=== PATIENT | male | born 1955 | race Caucasian/White ===

== ENCOUNTER 2024-08-18 07:18 | Outpatient (OUT) | payer BC, SELFPAY ==
[2024-08-18 07:46] LABS: Basophils Absolute Auto 0.1 10^3/uL (0.0-0.1); Basophils Percent Auto 0.4 % (0.2-2.0); Eosinophils Absolute Auto 1.1 10^3/uL (0.0-0.7); Eosinophils Percent Auto 7.1 % (0.9-7.0); Hematocrit 32.7 % (42.0-54.0); Hemoglobin 10.2 g/dL (14.0-18.0); Immature Granulocytes Abs Auto 0.09 10^3/uL (0.00-0.03); Immature Granulocytes Pct Auto 0.6 % (0.0-0.5); Lymphocytes Absolute Auto 0.9 10^3/uL (1.2-3.8); Mean Corpuscular HGB Conc 31.2 g/dL (29.9-35.2); Mean Corpuscular Hemoglobin 30.5 pg (25.9-34.0); Mean Corpuscular Volume 97.9 fL (80.0-94.0); Mean Platelet Volume 8.8 fL (9.5-13.5); Monocytes Percent Auto 6.7 % (1.7-12.0); Neutrophils Absolute Auto 11.8 10^3/uL (1.4-6.5); Neutrophils Percent Auto 79.2 % (43.0-75.0); Platelet Count 556 10^3/uL (150-450); Red Blood Count 3.34 10^6/uL (4.70-6.10); Red Cell Distribution Width 14.6 % (11.0-15.0); White Blood Count 14.8 10^3/uL (4.0-11.0)
[2024-08-18 08:16] LABS: Alanine Aminotransferase 22 U/L (16-63); Albumin Globulin Ratio 0.4; Alkaline Phosphatase 82 U/L (46-116); Anion Gap 15.9; Aspartate Amino Transferase 20 U/L (15-37); BUN Creatinine Ratio 13.4; Bilirubin Total 0.4 mg/dL (0.2-1.0); Calcium 8.5 mg/dL (8.5-10.1); Carbon Dioxide 26.4 mmol/L (21.0-32.0); Chloride 99 mmol/L (98-107); Chol HDL Ratio 4.2; Cholesterol 126 mg/dL (<=200); Estimated GFR (African America >60 (>=60 mL/min/1.73m^2); Estimated GFR (Non-African Ame >60 (>=60 mL/min/1.73m^2); Free T3 0.73 pg/mL (2.18-3.98); Glucose 81 mg/dL (74-106); HDL Cholesterol 30 mg/dL (40-60); Potassium 4.3 mmol/L (3.5-5.1); Sodium 137 mmol/L (136-145); Thyroid Stimulating Hormone 5.368 uIU/mL (0.358-3.740); Triglycerides 98 mg/dL (<=150); Uric Acid 3.2 mg/dL (3.5-7.2); VLDL CHOLESTEROL 19.6 mg/dL
[2024-08-18 08:43] LABS: Prostate Specific Antigen Scrn 1.61 ng/mL (<=4.00)
[2024-08-18 08:46] LABS: Estimated Average Glucose 105 mg/dL; Glycohemoglobin A1C 5.3 % (4.5-6.2)
[2024-08-19 04:07] LABS: Insulin 1.3 uIU/mL (2.6-24.9)
== END 2024-08-18 07:19 | disposition home or self-care (01) ==
LOC: LAB 07:23
PROVIDERS: PCP Nurse Practitioner Family; Visit Provider Nurse Practitioner Family
DX: Z00.00 Encounter for general adult medical examination without abnormal findings (principal); R53.83 Other fatigue; D72.828 Other elevated white blood cell count; D64.9 Anemia, unspecified; D75.838 Other thrombocytosis
CPT/HCPCS: 36415; 80053; 80061; 83036; 83525; 84436; 84443; 84481; 84550; 85025; G0103

== ENCOUNTER 2024-08-30 13:33 | Outpatient (OUT) | payer BC, SELFPAY ==
--- NOTE | 2024-08-30 | CT_ITS ---
[address] [address] Patient Name: EBONY WADSWORTH MRN: [id number] date: 1955 Sex: M Assigned Patient Location: CT Current Patient Location: Accession/Order Number: [id number] Exam Date: 08/30/2024 14:10 Report Date: 09/01/2024 05:17 At the request of: PATRIA CUELLAR Procedure: CT lung screening low-dose EXAMINATION: CT lung screening low-dose HISTORY: Smoker COMPARISON: No relevant comparison available. TECHNIQUE: Axial, Coronal, and Sagittal images were created without the administration of IV contrast material. Dose reduction techniques were achieved by using automated exposure control and/or adjustment of mA and/or kV according to patient size and/or use of iterative reconstruction technique. FINDINGS: LUNGS: Large right upper lobe mass approximately 16 x 13 x 10 cm. Marked emphysematous changes bilaterally. PLEURA: Right pleural effusion 2.1 cm in thickness. VASCULATURE: No abnormality. ATTILA: Right hilar lymphadenopathy versus involvement with the right upper lobe mass. MEDIASTINUM: Suspect enlarged lymph nodes. CARDIAC: Trace amount of pericardial fluid. Coronary Artery calcifications: Coronary calcifications are mild. AORTA: No aneurysm or dissection. CHEST WALL: Right supraclavicular mass approximately 5.1 cm. BONES: No bone lesion or fracture. LIMITED ABDOMEN: No suspicious findings. Limited images of the upper abdomen. OTHER: Negative. CT/CT lung screening low-dose IMPRESSION: 1. Lung-RADS Category 4B- Suspicious. Findings for which additional diagnostic testing and/ or tissue sampling is recommended. Chest CT with or without contrast, PET/CT and/ or tissue sampling depending on the * probability of malignancy and comorbidities. PET/CT may be used when there is a >= 8 mm solid component. 2. Large 16 cm right upper lobe mass most compatible with neoplasm. Tissue sampling is recommended. 3. Right supraclavicular mass; likely metastatic disease to lymph nodes. 4. Suspect mediastinal lymphadenopathy. CT chest with IV contrast could be performed for clarification. 5. Moderate size right pleural effusion. Electronically authenticated by: EMMA JACKSON Date: 09/01/2024 05:17
--- NOTE | 2024-08-30 13:39 | XR_ITS ---
The [address] [address] Patient Name: EBONY WADSWORTH MRN: [id number] date: 1955 Sex: M Assigned Patient Location: CT Current Patient Location: LAB Accession/Order Number: [id number] Exam Date: 08/30/2024 13:45 Report Date: 08/30/2024 15:04 At the request of: PATRIA CUELLAR Procedure: XR lumbar spine 2-3V EXAMINATION: XR thoracic spine 2V, XR lumbar spine 2-3V HISTORY: Back Pain COMPARISON: No relevant comparison available. FINDINGS: BONES: Normal alignment of the thoracic spine on the lateral projection. No lateral lumbar projection is presented. Mild to moderate spondylosis and facet osteoarthropathy DISC SPACES: Normal. No significant disc height narrowing, subluxation, or endplate abnormality. PARASPINOUS: Negative. No paraspinous abnormality is seen. OTHER: Approximately 50% opacification of the right upper to mid lung zone, indeterminate. Vascular calcifications. XR/XR lumbar spine 2-3V IMPRESSION: Mild to moderate degenerative change 50% opacification of the right upper to midlung zone Electronically authenticated by: KARI MOLINA Date: 08/30/2024 15:04
--- NOTE | 2024-08-30 13:59 | XR_ITS ---
The [address] [address] Patient Name: EBONY WADSWORTH MRN: [id number] date: 1955 Sex: M Assigned Patient Location: CT Current Patient Location: LAB Accession/Order Number: [id number] Exam Date: 08/30/2024 13:45 Report Date: 08/30/2024 15:04 At the request of: PATRIA CUELLAR Procedure: XR thoracic spine 2V EXAMINATION: XR thoracic spine 2V, XR lumbar spine 2-3V HISTORY: Back Pain COMPARISON: No relevant comparison available. FINDINGS: BONES: Normal alignment of the thoracic spine on the lateral projection. No lateral lumbar projection is presented. Mild to moderate spondylosis and facet osteoarthropathy DISC SPACES: Normal. No significant disc height narrowing, subluxation, or endplate abnormality. PARASPINOUS: Negative. No paraspinous abnormality is seen. OTHER: Approximately 50% opacification of the right upper to mid lung zone, indeterminate. Vascular calcifications. XR/XR thoracic spine 2V IMPRESSION: Mild to moderate degenerative change 50% opacification of the right upper to midlung zone Electronically authenticated by: KARI MOLINA Date: 08/30/2024 15:04
== END 2024-08-30 13:34 | disposition home or self-care (01) ==
LOC: CT 13:33
PROVIDERS: PCP Nurse Practitioner Family; Visit Provider Nurse Practitioner Family
DX: R91.8 Other nonspecific abnormal finding of lung field (principal); M54.9 Dorsalgia, unspecified; F17.200 Nicotine dependence, unspecified, uncomplicated; J90 Pleural effusion, not elsewhere classified
CPT/HCPCS: 71271; 72070; 72100

== ENCOUNTER 2024-08-31 07:01 | Outpatient (OUT) | payer BC, SELFPAY ==
[2024-08-31 07:58] LABS: Basophils Absolute Auto 0.1 10^3/uL (0.0-0.1); Basophils Percent Auto 0.4 % (0.2-2.0); Eosinophils Absolute Auto 1.4 10^3/uL (0.0-0.7); Eosinophils Percent Auto 6.3 % (0.9-7.0); Hematocrit 29.6 % (42.0-54.0); Immature Granulocytes Abs Auto 0.15 10^3/uL (0.00-0.03); Immature Granulocytes Pct Auto 0.7 % (0.0-0.5); Lymphocytes Percent Auto 4.7 % (20.5-60.0); Mean Corpuscular HGB Conc 30.4 g/dL (29.9-35.2); Mean Corpuscular Hemoglobin 29.8 pg (25.9-34.0); Mean Platelet Volume 9.5 fL (9.5-13.5); Monocytes Absolute Auto 0.9 10^3/uL (0.3-0.8); Neutrophils Absolute Auto 18.4 10^3/uL (1.4-6.5); Neutrophils Percent Auto 83.9 % (43.0-75.0); Platelet Count 639 10^3/uL (150-450); Red Blood Count 3.02 10^6/uL (4.70-6.10); Red Cell Distribution Width 14.7 % (11.0-15.0); White Blood Count 21.9 10^3/uL (4.0-11.0)
[2024-08-31 08:29] LABS: Thyroid Stimulating Hormone 3.402 uIU/mL (0.358-3.740)
== END 2024-08-31 07:02 | disposition home or self-care (01) ==
LOC: LAB 07:01
PROVIDERS: PCP Nurse Practitioner Family; Visit Provider Nurse Practitioner Family
DX: M54.9 Dorsalgia, unspecified (principal); R53.83 Other fatigue; Z12.12 Encounter for screening for malignant neoplasm of rectum; D64.9 Anemia, unspecified; E03.9 Hypothyroidism, unspecified; D72.829 Elevated white blood cell count, unspecified
CPT/HCPCS: 36415; 81001; 83540; 84436; 84443; 84481; 85025; 87086

== ENCOUNTER 2024-09-01 02:52 | Emergency (ER) | payer BC, SELFPAY ==
[2024-09-01 03:07] VITALS: BP 115/78; PULSE 53; TEMP 36.9; O2SAT 94; BMI 18.2
--- NOTE | 2024-09-01 03:48 | ECG_ITS ---
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
--- NOTE | 2024-09-01 03:48 | CT_ITS ---
[address] [address] Patient Name: EBONY WADSWORTH MRN: [id number] date: 1955 Sex: M Assigned Patient Location: Current Patient Location: CT Accession/Order Number: [id number] Exam Date: 09/01/2024 04:40 Report Date: 09/01/2024 05:33 At the request of: CHRISTOPHER HARRELL Procedure: CT soft tissue neck w con EXAMINATION: CT soft tissue neck w con, CT chest w con HISTORY: right sided neck mass COMPARISON: No relevant comparison available. TECHNIQUE: Axial, Coronal, and Sagittal CT images created with IV contrast. Dose reduction techniques were achieved by using automated exposure control and/or adjustment of mA and/or kV according to patient size and/or use of iterative reconstruction technique. FINDINGS: NASOPHARYNX: No asymmetry of the fossae of Rosenmuller and torus tubarius. ORAL CAVITY: No visible mass. OROPHARYNX: No asymmetry of the facial and lingual tonsils. HYPOPHARYNX: No mass or other visible lesion. LARYNX: No mass or asymmetry of the vocal cords. SINUSES: No significant fluid or mucosal thickening. NECK GLANDS: No visible abnormality of the parotid, submandibular, and thyroid glands. LYMPH NODES: 5.8 cm right supraclavicular mass/lymph node. 3.5 cm left supraclavicular mass/lymph node. VASCULATURE: No suspicious abnormality. BONES: No appreciable bone lesion. Marked degenerative changes of cervical spine. OTHER: 2.4 cm area of enhancement within right temporal lobe with trace amount of suspected edema; suspicious for metastatic disease. LUNGS: Right upper lobe heterogeneously enhancing 14.7 x 11.0 x 13.2 cm mass. Moderate to marked emphysematous changes bilaterally. PLEURA: Right pleural effusion 2.6 cm in thickness. Encapsulated pleural fluid overlying the right lung apex/mass. VASCULATURE: Mass versus thrombus occluding the right upper lobe pulmonary vein. No pulmonary arterial thrombus or emboli. ATTILA: Right upper lobe mass completely encapsulates right hilum with extension into the mediastinum. MEDIASTINUM: 2 abnormally enlarged and heterogeneously enhancing lymph nodes/masses within upper mediastinum, 3.8 cm and 3.7 cm respectively. Multiple abnormal subcarinal and precarinal lymph nodes. CARDIAC: Trace amount pericardial fluid. AORTA: No aneurysm or dissection. CHEST WALL: See above under neck BONES: No bone lesion or fracture. LIMITED ABDOMEN: Bilateral adrenal masses, 5.0 cm in diameter on right, 10.1 cm on left. Limited images of the upper abdomen. OTHER: Negative. CT/CT soft tissue neck w con IMPRESSION: 1. Large right upper lobe mass most compatible with neoplasm. 2. Metastatic lesions versus abnormal lymph nodes within the supraclavicular regions bilaterally, right hilum, and mediastinum. 3. Area of abnormal enhancement within the right temporal lobe of the brain minimally included on today's study but concerning for metastatic disease. 4. Moderate size right pleural effusion along with encapsulated pleural fluid overlying the right lung apex/mass. 5. Large bilateral adrenal masses of uncertain etiology (10.1 cm on left). Electronically authenticated by: EMMA JACKSON Date: 09/01/2024 05:33
[2024-09-01 04:06] LABS: Basophils Absolute Auto 0.1 10^3/uL (0.0-0.1); Basophils Percent Auto 0.4 % (0.2-2.0); Eosinophils Absolute Auto 1.8 10^3/uL (0.0-0.7); Eosinophils Percent Auto 7.5 % (0.9-7.0); Hematocrit 26.3 % (42.0-54.0); Hemoglobin 8.1 g/dL (14.0-18.0); Immature Granulocytes Pct Auto 0.8 % (0.0-0.5); Lymphocytes Percent Auto 4.1 % (20.5-60.0); Mean Corpuscular HGB Conc 30.8 g/dL (29.9-35.2); Mean Corpuscular Hemoglobin 30.1 pg (25.9-34.0); Mean Corpuscular Volume 97.8 fL (80.0-94.0); Mean Platelet Volume 9.5 fL (9.5-13.5); Monocytes Absolute Auto 1.1 10^3/uL (0.3-0.8); Monocytes Percent Auto 4.6 % (1.7-12.0); Neutrophils Absolute Auto 19.5 10^3/uL (1.4-6.5); Neutrophils Percent Auto 82.6 % (43.0-75.0); Platelet Count 555 10^3/uL (150-450); Red Blood Count 2.69 10^6/uL (4.70-6.10); White Blood Count 23.6 10^3/uL (4.0-11.0)
[2024-09-01 04:23] LABS: Alanine Aminotransferase 13 U/L (16-63); Albumin Globulin Ratio 0.4; Albumin Level 1.8 g/dL (3.4-5.0); Alkaline Phosphatase 78 U/L (46-116); Anion Gap 12.7; Aspartate Amino Transferase 20 U/L (15-37); BUN Creatinine Ratio 21.7; Bilirubin Total 0.4 mg/dL (0.2-1.0); Calcium 8.4 mg/dL (8.5-10.1); Carbon Dioxide 25.3 mmol/L (21.0-32.0); Chloride 100 mmol/L (98-107); Estimated GFR (African America >60 (>=60 mL/min/1.73m^2); Estimated GFR (Non-African Ame >60 (>=60 mL/min/1.73m^2); Globulin 4.7 g/dL; Glucose 92 mg/dL (74-106); Sodium 134 mmol/L (136-145); Total Protein 6.5 g/dL (6.4-8.2)
--- NOTE | 2024-09-01 04:25 | CT_ITS ---
[address] [address] Patient Name: EBONY WADSWORTH MRN: [id number] date: 1955 Sex: M Assigned Patient Location: ED.MAIN Current Patient Location: CT Accession/Order Number: [id number] Exam Date: 09/01/2024 04:40 Report Date: 09/01/2024 05:33 At the request of: CHRISTOPHER HARRELL Procedure: CT chest w con EXAMINATION: CT soft tissue neck w con, CT chest w con HISTORY: right sided neck mass COMPARISON: No relevant comparison available. TECHNIQUE: Axial, Coronal, and Sagittal CT images created with IV contrast. Dose reduction techniques were achieved by using automated exposure control and/or adjustment of mA and/or kV according to patient size and/or use of iterative reconstruction technique. FINDINGS: NASOPHARYNX: No asymmetry of the fossae of Rosenmuller and torus tubarius. ORAL CAVITY: No visible mass. OROPHARYNX: No asymmetry of the facial and lingual tonsils. HYPOPHARYNX: No mass or other visible lesion. LARYNX: No mass or asymmetry of the vocal cords. SINUSES: No significant fluid or mucosal thickening. NECK GLANDS: No visible abnormality of the parotid, submandibular, and thyroid glands. LYMPH NODES: 5.8 cm right supraclavicular mass/lymph node. 3.5 cm left supraclavicular mass/lymph node. VASCULATURE: No suspicious abnormality. BONES: No appreciable bone lesion. Marked degenerative changes of cervical spine. OTHER: 2.4 cm area of enhancement within right temporal lobe with trace amount of suspected edema; suspicious for metastatic disease. LUNGS: Right upper lobe heterogeneously enhancing 14.7 x 11.0 x 13.2 cm mass. Moderate to marked emphysematous changes bilaterally. PLEURA: Right pleural effusion 2.6 cm in thickness. Encapsulated pleural fluid overlying the right lung apex/mass. VASCULATURE: Mass versus thrombus occluding the right upper lobe pulmonary vein. No pulmonary arterial thrombus or emboli. ATTILA: Right upper lobe mass completely encapsulates right hilum with extension into the mediastinum. MEDIASTINUM: 2 abnormally enlarged and heterogeneously enhancing lymph nodes/masses within upper mediastinum, 3.8 cm and 3.7 cm respectively. Multiple abnormal subcarinal and precarinal lymph nodes. CARDIAC: Trace amount pericardial fluid. AORTA: No aneurysm or dissection. CHEST WALL: See above under neck BONES: No bone lesion or fracture. LIMITED ABDOMEN: Bilateral adrenal masses, 5.0 cm in diameter on right, 10.1 cm on left. Limited images of the upper abdomen. OTHER: Negative. CT/CT chest w con IMPRESSION: 1. Large right upper lobe mass most compatible with neoplasm. 2. Metastatic lesions versus abnormal lymph nodes within the supraclavicular regions bilaterally, right hilum, and mediastinum. 3. Area of abnormal enhancement within the right temporal lobe of the brain minimally included on today's study but concerning for metastatic disease. 4. Moderate size right pleural effusion along with encapsulated pleural fluid overlying the right lung apex/mass. 5. Large bilateral adrenal masses of uncertain etiology (10.1 cm on left). Electronically authenticated by: EMMA JACKSON Date: 09/01/2024 05:33
--- NOTE | 2024-09-01 04:27 | ED.GENADUL1 ---
HPI HPI - General Adult General Chief complaint: Weakness Stated complaint: GENERAL WEAKNESS Time Seen by Provider: 09/01/24 03:21 Source: patient and family Mode of arrival: Wheelchair History of Present Illness HPI narrative: 69-year-old male to the emergency department with multiple medical complaints. Patient is accompanied by his who helps provide history. The patient reports that he just has not been feeling well for weeks. He has been worked up by his outpatient nurse practitioner. He was recently at the hospital for some labs, was found to have a leukocytosis, was on some antibiotics. He had follow-up labs performed which showed that his white count did not improve. was told that if he was feeling worse they should come to the emergency department. He denies any fever, sweats, chills. He reports nausea without vomiting. He reports generalized weakness. He reports some mild shortness of breath. reports that she noticed a week ago that he has some swelling on the right side of his neck. She is concerned that this has not been addressed. They are here tonight because they want to know why he is anemic, has an elevated white blood cell count, has generalized weakness. He was given follow-up with hematology was which has not yet occurred. Related Data Home Medications ?Medication ?Instructions ?Recorded ?Confirmed albuterol sulfate 90 mcg/actuation inhalation 09/01/24 aerosol inhaler meloxicam 7.5 mg tablet mg 09/01/24 ondansetron HCl 4 mg tablet mg 09/01/24 Allergies Allergy/AdvReac Type Severity Reaction Status Date / Time No Known Drug Allergies Allergy Verified 09/01/24 03:19 Opioid HPI Opioid Management Most Recent Opioid Data: No Data to Display Review of Systems ROS Status of ROS 10 or more systems reviewed and unremarkable except as noted in history and below [facility] Social History Little interest or pleasure in doing things: not at all Feeling down, depressed, or hopeless: not at all Exam Narrative Exam Narrative: VITALS: I have reviewed the triage vital signs. GENERAL: Chronically ill-appearing adult male NEURO: Alert and oriented. Moves all extremities. Face is symmetric and expressive. EYES: PERRL. No scleral icterus or conjunctival injection. No discharge. HENT: Normocephalic, atraumatic. Hearing is grossly intact. Nares grossly patent and without discharge. Mucous membranes moist. NECK: No JVD. Patient moves neck without restriction. Nonmobile/nontender right-sided neck mass. CARDIO: Rhythm regular. Normal rate. No murmur, rub, or gallop. Pulses equal bilaterally in the upper and lower extremity. No lower extremity edema. PULM: Decreased lung sounds on the right. No wheezes, rales, or rhonchi. No conversational dyspnea. No splinting, stridor, or accessory muscle use. GI/: Abdomen is soft and non-tender. Normoactive bowel sounds. EXTREMITIES: Symmetric muscle bulk. No joint swelling. No clubbing, cyanosis, or deformity. SKIN: Warm and dry. Normal turgor. No rash or lesions appreciated. PSYCH: Mood, affect, and interaction is appropriate to the setting. Constitutional Vital Signs, click to edit/add: Last Vital Signs Temp 97.6 F 09/01/24 06:25 Pulse 78 09/01/24 06:25 Resp 18 09/01/24 06:25 BP 106/78 09/01/24 06:25 Pulse Ox 91 L 09/01/24 06:25 O2 Del Method Room Air 09/01/24 06:25 Course Vital Signs Vital signs: Vital Signs Temperature 98.5 F 09/01/24 03:07 Pulse Rate 53 L 09/01/24 03:07 Respiratory Rate 18 09/01/24 03:07 Blood Pressure 115/78 09/01/24 03:07 Pulse Oximetry 94 L 09/01/24 03:07 Oxygen Delivery Method Room Air 09/01/24 03:07 Temperature 97.6 F 09/01/24 06:25 Pulse Rate 78 09/01/24 06:25 Respiratory Rate 18 09/01/24 06:25 Blood Pressure 106/78 09/01/24 06:25 Pulse Oximetry 91 L 09/01/24 06:25 Oxygen Delivery Method Room Air 09/01/24 06:25 Medical Decision Making MDM Narrative Medical decision making narrative: 69-year-old male with chronic generalized weakness, shortness of breath, right-sided neck mass to the emergency department for the above. Vital stable, the patient is afebrile. He has no focal motor deficits. He is alert and oriented. He does have a nonmobile/nontender mass to the right sided neck. Decreased lung sounds on the right. I did review the labs and imaging ordered by his nurse practitioner. He does have a leukocytosis and chronic appearing anemia. The low-dose CT scan has not yet been read but there is a opacification of the right lung brewster. Given the abnormal low-dose noncontrasted CT, neck mass, generalized symptoms decision is made to proceed with CT imaging of the neck as well as chest with IV contrast. Basic labs. Concern for malignancy. Case discussed via telephone with Dr. Wright the on-call oncologist. For purposes of staging, biopsy, initiation of treatment he believes the patient is best served by transfer to [facility]. Patient was updated on findings and plan of care. He agrees with plan for transfer to [facility]. Case was discussed with Dr. Cui the on-call hospitalist at [facility]. He accepts the patient to his service. Medical Records Medical records reviewed: Yes I reviewed the patient's medical records Lab Data Lab results reviewed: Yes I reviewed the patient's lab results Labs: Lab Results 09/01/24 Range/Units 03:55 WBC 23.6 H (4.0-11.0) 10^3/uL RBC 2.69 L (4.70-6.10) 10^6/uL Hgb 8.1 L (14.0-18.0) g/dL Hct 26.3 L (42.0-54.0) % MCV 97.8 H (80.0-94.0) fL MCH 30.1 (25.9-34.0) pg MCHC 30.8 (29.9-35.2) g/dL RDW 15.0 (11.0-15.0) % Plt Count 555 H (150-450) 10^3/uL MPV 9.5 (9.5-13.5) fL Neut % (Auto) 82.6 H (43.0-75.0) % Lymph % (Auto) 4.1 L (20.5-60.0) % [place] % (Auto) 4.6 (1.7-12.0) % Eos % (Auto) 7.5 H (0.9-7.0) % Baso % (Auto) 0.4 (0.2-2.0) % Neut # (Auto) 19.5 H (1.4-6.5) 10^3/uL Lymph # (Auto) 1.0 L (1.2-3.8) 10^3/uL [place] # (Auto) 1.1 H (0.3-0.8) 10^3/uL Eos # (Auto) 1.8 H (0.0-0.7) 10^3/uL Baso # (Auto) 0.1 (0.0-0.1) 10^3/uL Abs Immat Gran (auto) 0.20 H (0.00-0.03) 10^3/uL Imm/Tot Granulo (auto) 0.8 H (0.0-0.5) % Sodium 134 L (136-145) mmol/L Potassium 4.0 (3.5-5.1) mmol/L Chloride 100 (98-107) mmol/L Carbon Dioxide 25.3 (21.0-32.0) mmol/L Anion Gap 12.7 BUN 23.0 H (7.0-18.0) mg/dL Creatinine 1.06 (0.70-1.30) mg/dL Est GFR ( Amer) >60 (>=60 mL/min/1.73m^2) Est GFR (Non-Af Amer) >60 (>=60 mL/min/1.73m^2) BUN/Creatinine Ratio 21.7 Glucose 92 (74-106) mg/dL Calcium 8.4 L (8.5-10.1) mg/dL Total Bilirubin 0.4 (0.2-1.0) mg/dL AST 20 (15-37) U/L ALT 13 L (16-63) U/L Alkaline Phosphatase 78 (46-116) U/L Troponin I High Sens 5.0 (4.0-76.1) pg/mL Total Protein 6.5 (6.4-8.2) g/dL Albumin 1.8 L (3.4-5.0) g/dL Globulin 4.7 g/dL Albumin/Globulin Ratio 0.[address] scan - chest: Radiologist's impression: ITS Impressions Soft Tissue Neck CT 09/01/24 03:48 IMPRESSION: 1. Large right upper lobe mass most compatible with neoplasm. 2. Metastatic lesions versus abnormal lymph nodes within the supraclavicular regions bilaterally, right hilum, and mediastinum. 3. Area of abnormal enhancement within the right temporal lobe of the brain minimally included on today's study but concerning for metastatic disease. 4. Moderate size right pleural effusion along with encapsulated pleural fluid overlying the right lung apex/mass. 5. Large bilateral adrenal masses of uncertain etiology (10.1 cm on left). Electronically authenticated by: EMMA JACKSON Date: 09/01/2024 05:[address] 09/01/24 04:25 IMPRESSION: 1. Large right upper lobe mass most compatible with neoplasm. 2. Metastatic lesions versus abnormal lymph nodes within the supraclavicular regions bilaterally, right hilum, and mediastinum. 3. Area of abnormal enhancement within the right temporal lobe of the brain minimally included on today's study but concerning for metastatic disease. 4. Moderate size right pleural effusion along with encapsulated pleural fluid overlying the right lung apex/mass. 5. Large bilateral adrenal masses of uncertain etiology (10.1 cm on left). Electronically authenticated by: EMMA JACKSON Date: 09/01/2024 05:33 ECG Data Attestation: ?I have reviewed the pertinent ECG results. (Normal sinus rhythm at a rate of 80. No STEMI. Normal QTc.) Discharge Plan Discharge Chief Complaint: Weakness Clinical Impression: Mass of lateral neck, Generalized weakness, Lung mass, Metastasis to brain Patient Disposition: [facility] Time of Disposition Decision: 06:44 Discharge Location: The [facility] Condition: Fair Mode of Transportation: EMS
[2024-09-01 05:57] VITALS: BP 110/60
[2024-09-01 06:25] VITALS: BP 106/78; PULSE 78; TEMP 36.4; O2SAT 91
[2024-09-01 08:55] VITALS: BP 110/70; PULSE 76; O2SAT 93
[2024-09-01 11:02] VITALS: BP 110/72; PULSE 78; O2SAT 96
[2024-09-01 12:24] VITALS: BP 110/78; PULSE 76; O2SAT 95
== END 2024-09-01 12:50 | disposition short-term general hospital (02) ==
PROVIDERS: Emergency Provider Student in an Organized Health Care Education/Training Program; PCP Nurse Practitioner Family
DX: R91.8 Other nonspecific abnormal finding of lung field (principal); C79.31 Secondary malignant neoplasm of brain; R22.1 Localized swelling, mass and lump, neck; R53.1 Weakness; R06.02 Shortness of breath; D72.829 Elevated white blood cell count, unspecified; E27.9 Disorder of adrenal gland, unspecified; J90 Pleural effusion, not elsewhere classified
CPT/HCPCS: 36415; 70491; 71260; 80053; 84484; 85025; 93005; 99285; Q9967